=== PATIENT | male | born 1975 | race Hispanic/Latino ===

== ENCOUNTER 2020-12-16 09:28 | Emergency (ER) | payer SELFPAY ==
[~2020-12-16] VITALS: Ht 165.1 cm; Wt 72.0 kg
[~2020-12-16 09:28] MED LIST: DOXYCYCL HYC100 MG PO; NO MEDS; PRILOSEC20 MG PO; PYRIDIUM200 MG PO; ZOFRAN4 M1 OR
[2020-12-16 11:43] LABS: HEMATOCRIT 41.7 % (39.0-50.0); HEMOGLOBIN 14.8 g/dl (14.0-18.0); IMMATURE GRANULOCYTES 0.3 % (0.0-5.0); MEAN CELL VOLUME 84.8 fL CALC (80.0-100.0); MEAN CORPUSCULAR HGB 30.1 pG CALC (26.0-32.0); MEAN CORPUSCULAR HGB CONC 35.5 g/dL CAL (32.0-36.0); NEUT# 4.76 thou/uL (1.82-7.42); RED BLOOD COUNT 4.92 mill/uL (4.70-6.10)
[2020-12-16 11:53] LABS: ALBUMIN 4.6 g/dL (3.2-5.0); ALKALINE PHOSPHATASE 74 u/l (38-126); AMYLASE 84 u/l (30-110); BUN 18 mg/dL (9-20); BUN/CREATININE RATIO 37 (12-20 (CALC)); CARBON DIOXIDE 28 mmol/l (22-30); CHLORIDE 91 mmol/l (95-108); CREATININE 0.5 mg/dL (0.7-1.3); ETHYL ALCOHOL 0 mg/dl (0-30); GFR > 60 ML/MIN (>=60 (CALC)); GFR FOR AFR.AMER. > 60 ML/MIN (>=60 (CALC)); LIPASE 309 u/l (23-300); POTASSIUM 3.4 mmol/l (3.5-5.1); SGOT/AST 65 u/l (17-59); TOTAL PROTEIN 8.1 g/dL (6.3-8.2)
[2020-12-16 11:55] LABS: ANION GAP 16 (6-22 (CALC)); BILIRUBIN, TOTAL 3.3 mg/dL (0.0-1.4); SODIUM 132 mmol/l (137-146)
[2020-12-16 12:00] LABS: ACT PARTIAL THROMBO TIME 22.4 SECONDS (20.0-32.5); PROTHROMBIN TIME 10.2 SECONDS (9.0-12.5)
[2020-12-16] MEDS ORDERED: PROTONIX40 M2 PO (13:13)
[2020-12-16] MEDS ORDERED: KEFLEX500 MG PO (13:13)
[2020-12-16] MEDS ORDERED: ZOFRAN4 MG/TAB PO (13:13)
[2020-12-16 13:55] VITALS: BP 162/80
== END 2020-12-16 13:55 | disposition home or self-care (01) | DRG 605 ==
LOC: ED 09:28
PROC: 0HQKXZZ Repair Right Lower Leg Skin, External Approach (ICD-10-PCS; principal; 2020-12-16)
DX: S81.852A Open bite, left lower leg, initial encounter (principal); S81.851A Open bite, right lower leg, initial encounter; K29.20 Alcoholic gastritis without bleeding; W54.0XXA Bitten by dog, initial encounter; Y93.55 Activity, bike riding; Y92.410 Unspecified street and highway as the place of occurrence of the external cause; Z20.822 Contact with and (suspected) exposure to COVID-19
CPT/HCPCS: Q9967; S0164

== ENCOUNTER 2020-12-25 13:00 | Emergency (ER) | payer SELFPAY ==
[~2020-12-25 13:00] MED LIST changes: +KEFLEX500 MG PO; +PROTONIX40 M2 PO; +ZOFRAN4 MG/TAB PO
[2020-12-25 14:35] VITALS: BP 128/75
== END 2020-12-25 14:41 | disposition home or self-care (01) | DRG 950 ==
LOC: ED 13:00
DX: S81.851D Open bite, right lower leg, subsequent encounter (principal); W54.0XXD Bitten by dog, subsequent encounter